=== PATIENT | male | born 1960 | race Caucasian/White ===

== ENCOUNTER 2018-05-22 11:49 | Emergency (ER) | payer OTHER, BC ==
[~2018-05-22] VITALS: Ht 172.7 cm; Wt 79.5 kg
[~2018-05-22 11:49] MED LIST: GEMF600T PO; LISI-642 PO; WARF2.5T PO
[2018-05-22] MEDS ORDERED: normal saline 500ml IV soln 1,000 ML IV ONE (12:45)
[2018-05-22] MEDS ORDERED: iohexol 300mg/ml 100ml inj. ONE (12:47)
[2018-05-22 12:48] LABS: BASOPHILS % (AUTO) 0.2 % (0-1); EOSINOPHILS # (AUTO) 0.3 X10'3 (0-0.9); EOSINOPHILS % (AUTO) 1.7 % (0-6); HEMATOCRIT 41.7 % (42.0-52.0); HEMOGLOBIN 14.1 g/dl (14.0-17.9); LYMPHOCYTES # (AUTO) 1.1 X10'3 (1.1-4.8); LYMPHOCYTES % (AUTO) 5.5 % (21-51); MEAN CORPUSCULAR HEMOGLOBIN 28.7 PG (27.0-31.0); MEAN CORPUSCULAR HGB CONC 33.8 % (33.0-36.5); MEAN CORPUSCULAR VOLUME 84.9 FL (78-98); MONOCYTES # (AUTO) 0.9 X10'3 (0-0.9); MONOCYTES % (AUTO) 4.7 % (2-12); NEUTROPHILS # (AUTO) 16.9 X10'3 (1.8-7.7); NEUTROPHILS % (AUTO) 87.9 % (42-75); PLATELET COUNT 271 X10'3 (140-440); RED BLOOD COUNT 4.92 X10'6 (4.70-6.10); RED CELL DISTRIBUTION WIDTH 13.4 % (11.5-14.5); WHITE BLOOD COUNT 19.2 X10'3 (4.5-11.0)
[2018-05-22 13:07] LABS: ALANINE AMINOTRANSFERASE 41 U/L (12-78); ALBUMIN 3.9 G/DL (3.4-5.0); ALKALINE PHOSPHATASE 73 IU/L (46-116); ANION GAP 9 (8-16); ASPARTATE AMINO TRANSFERASE 38 U/L (10-37); BILIRUBIN,TOTAL 0.9 MG/DL (0.1-1.0); BLOOD UREA NITROGEN 17 MG/DL (7-18); CALCIUM 8.9 MG/DL (8.5-10.1); CHLORIDE 101 MMOL/L (99-107); CREATININE 1.06 MG/DL (0.60-1.10); GLUCOSE 94 MG/DL (70-104); POTASSIUM 3.9 MMOL/L (3.5-5.1); SODIUM 138 MMOL/L (135-145); TOTAL CARBON DIOXIDE 27.7 MMOL/L (24-32); TOTAL PROTEIN 7.8 G/DL (6.4-8.2); eGFR 71 ML/MIN
[2018-05-22 13:10] LABS: INR 1.8 INR; PROTHROMBIN TIME 17.4 SECONDS (9.0-12.0)
[2018-05-22 13:50] LABS: CLARITY,URINE CLEAR (Clear); COLOR,URINE YELLOW (Yellow); GLUCOSE, URINE NEGATIVE (Neg); KETONES,URINE NEGATIVE (Neg); LEUKOCYTE ESTERASE ,URINE NEGATIVE (Neg); NITRITES, URINE NEGATIVE (Neg); OCCULT BLOOD,URINE MODERATE (Neg); PROTEIN,URINE NEGATIVE (Neg); UROBILINOGEN,URINE 0.2 E.U/dL (0.2-1.0)
[2018-05-22] MEDS ORDERED: HYDR-4353 PO (13:54)
[2018-05-22 13:55] LABS: UA COLLECTION TYPE CLN CATCH MIDSTREAM
[2018-05-22 13:56] LABS: BACTERIA,URINE NONE SEEN /HPF (Neg); MUCUS STRANDS FEW /LPF (Neg); RBC,URINE 0-2 /HPF (0-2); SQUAMOUS EPITHELIAL CELL,UR NONE SEEN /LPF (FEW); WBC,URINE 0-4 /HPF (0-4)
[2018-05-22] MEDS ORDERED: HYDROcodone/acetaminophen 10/325mg tab PO ONE (14:00)
[2018-05-22 14:27] VITALS: BP 118/76
== END 2018-05-22 14:28 | disposition home or self-care (01) ==
LOC: ER 11:50
DX: S39.012A Strain of muscle, fascia and tendon of lower back, initial encounter (principal); S10.91XA Abrasion of unspecified part of neck, initial encounter; S09.90XA Unspecified injury of head, initial encounter; I10 Essential (primary) hypertension; Z79.01 Long term (current) use of anticoagulants; Z79.899 Other long term (current) drug therapy; V49.3XXA Car occupant (driver) (passenger) injured in unspecified nontraffic accident, initial encounter; Y93.89 Activity, other specified; Y92.488 Other paved roadways as the place of occurrence of the external cause; Y99.8 Other external cause status
CPT/HCPCS: 36415; 70450; 71045; 74177; 80053; 81001; 85025; 85610; 93005; 99284; J7030; Q9967

== ENCOUNTER 2024-10-21 09:36 | Outpatient (CLI) | payer BC, MEDICARE ==
[~2024-10-21 09:36] MED LIST changes: +ONDA8TAB6 PO; -WARF2.5T PO; +WARF2.5T2 PO
[2024-10-24 13:12] LABS: ANTINUCLEAR ANTIBODIES Negative (Negative)
== END 2024-10-21 23:59 | disposition home or self-care (01) ==
LOC: RAD 09:36
PROVIDERS: ATTEND Family Medicine
DX: M18.0 Bilateral primary osteoarthritis of first carpometacarpal joints (principal); M79.10 Myalgia, unspecified site; M25.50 Pain in unspecified joint; M17.0 Bilateral primary osteoarthritis of knee
CPT/HCPCS: 36415; 73030; 73130; 73565; 84550; 85651; 86038; 86431